=== PATIENT | female | born 1985 | race Caucasian/White ===

== ENCOUNTER 2017-05-20 14:48 | Emergency (ER) | payer OTHER ==
[2017-05-20 16:49] LABS: URINE PH (Dip) POC 6.5 (5.0-8.5)
[2017-05-20 16:49] LABS: URINE BLOOD (Dip) POC Negative (NEGATIVE); URINE GLUCOSE (Dip) POC Negative (NEGATIVE); URINE KETONES (Dip) POC Negative (NEGATIVE); URINE LEUKOCYTE EST (Dip) POC Negative (NEGATIVE); URINE NITRITE (Dip) POC Negative (NEGATIVE); URINE TOTAL PROTEIN POC Negative (NEGATIVE)
[2017-05-20] MEDS: KETOROLAC 30 MG INJ IM (16:54)
== END 2017-05-20 19:05 | disposition home or self-care (01) ==
LOC: FTE 14:48
DX: R10.2 Pelvic and perineal pain (principal)
CPT/HCPCS: 76856; 81003; 81025; 96372; 99285-25

== ENCOUNTER 2017-06-16 15:01 | Emergency (ER) | payer OTHER ==
[2017-06-16 16:29] LABS: URINE PH (Dip) POC 5.5 (5.0-8.5)
[2017-06-16 16:29] LABS: URINE BLOOD (Dip) POC 3+ (NEGATIVE); URINE GLUCOSE (Dip) POC Negative (NEGATIVE); URINE KETONES (Dip) POC 1+ (NEGATIVE); URINE LEUKOCYTE EST (Dip) POC Trace (NEGATIVE); URINE NITRITE (Dip) POC Negative (NEGATIVE); URINE TOTAL PROTEIN POC 1+ (NEGATIVE)
[2017-06-16] MEDS: KETOROLAC 30 MG INJ IM (16:41)
== END 2017-06-16 17:12 | disposition home or self-care (01) ==
LOC: FTE 15:01
DX: S39.92XA Unspecified injury of lower back, initial encounter (principal); X58.XXXA Exposure to other specified factors, initial encounter; Y92.9 Unspecified place or not applicable
CPT/HCPCS: 81003; 81025; 96372; 99284-25

== ENCOUNTER 2018-03-09 08:40 | Emergency (ER) | payer OTHER | END 2018-03-09 09:37 | disposition home or self-care (01) | LOC: FTE 08:40 | DX: R05 Cough (principal) | CPT/HCPCS: 99283; Z7502 ==